=== PATIENT | male | born 1970 | race African-American/Black ===

== ENCOUNTER 2022-10-25 23:15 | Inpatient (IN) | payer MEDICARE, OTHER ==
[~2022-10-25] VITALS: Ht 185.4 cm; Wt 99.8 kg
[2022-10-25] MEDS ORDERED: ATOR40TA PO (23:40)
[2022-10-25] MEDS ORDERED: DOCU100C36 PO (23:40)
[2022-10-25] MEDS ORDERED: LISI20TA30 PO (23:40)
[2022-10-25] MEDS ORDERED: METF-440 PO (23:40)
[2022-10-25] MEDS ORDERED: MULT-213 PO (23:40)
[2022-10-25] MEDS ORDERED: ERGO400C PO (23:40)
[2022-10-25] MEDS ORDERED: APIX5TAB4 PO (23:40)
[2022-10-25] MEDS ORDERED: OMEG1CAP PO (23:40)
[2022-10-25] MEDS ORDERED: METO-356 PO (23:40)
[2022-10-25] MEDS ORDERED: OXYCODONE/APAP 5-325 MG TABLET PO ONE (23:45)
[2022-10-26] MEDS ORDERED: OXYCODONE/APAP 5-325 MG TABLET ONE (00:09)
[2022-10-26 00:10] LABS: HEMATOCRIT 34.5 % (36.7-47.1); MEAN CORPUSCULAR HEMOGLOBIN 27.8 uug (23.8-33.4); MEAN CORPUSCULAR VOLUME 84.2 fL (73.0-96.2); PLATELET COUNT (AUTO) 245 K/uL (152-348)
[2022-10-26 00:20] LABS: CARBON DIOXIDE 29 mmol/L (21-32); CHLORIDE 103 mmol/L (98-107); GLUCOSE 102 mg/dL (74-106); POTASSIUM 3.2 mmol/L (3.5-5.1); UREA NITROGEN, BLOOD 10 mg/dL (7-18)
[2022-10-26 00:29] LABS: ALANINE AMINOTRANSFERASE 28 U/L (16-63); ALKALINE PHOSPHATASE 105 U/L (50-136); ASPARTATE AMINOTRANSFERASE 14 U/L (15-37); BILIRUBIN,DIRECT 0.1 mg/dL (0.0-0.2); BILIRUBIN,TOTAL 0.2 mg/dL (0.2-1.0); TOTAL PROTEIN, SERUM 7.7 g/dL (6.4-8.2)
[2022-10-26] MEDS ORDERED: POTASSIUM BICARBONATE/CIT AC 25 MEQ TABLET.EFF PO ONE (00:30)
[2022-10-26] MEDS ORDERED: BLOO-1731 MC (01:31)
[2022-10-26] MEDS ORDERED: POTASSIUM BICARBONATE/CIT AC 25 MEQ TABLET.EFF ONE (01:32)
[2022-10-26] MEDS ORDERED: ONDANSETRON 4 MG/2 ML VIAL ONE (01:42)
[2022-10-26] MEDS ORDERED: HYDROMORPHONE 1 MG/1 ML DISP.SYRIN ONE (01:42)
[2022-10-26] MEDS ORDERED: ONDANSETRON 4 MG/2 ML VIAL IV ONE (01:45)
[2022-10-26] MEDS ORDERED: HYDROMORPHONE 1 MG/1 ML DISP.SYRIN IV ONE (01:45)
--- NOTE | 2022-10-26 02:01 | NUR ---
Called [facility] for panel call. Yenni Avery media relations coordinator. Waiting for call back.
--- NOTE | 2022-10-26 02:03 | NUR ---
Dr. Costello on panel call with Yenni Avery NP. Pending admission.
[2022-10-26] MEDS ORDERED: MAGNESIUM HYDROXIDE 30 ML LIQUID UDC PO PRN (02:15)
[2022-10-26] MEDS ORDERED: NITROGLYCERIN OINT 1 GM PACKET TP ONE ×2 (02:15→03:43)
[2022-10-26] MEDS ORDERED: ONDANSETRON 4 MG/2 ML VIAL IV PRN (02:15)
[2022-10-26] MEDS ORDERED: METOPROLOL TARTRATE 50 MG TABLET PO ONE (02:15)
[2022-10-26] MEDS ORDERED: REMEDY ESSENTIAL ZINC PASTE 113 GM TP PRN (02:15)
[2022-10-26] MEDS ORDERED: HYDROCODONE/APAP 10-325 MG TABLET ONE (03:44)
[2022-10-26] MEDS ORDERED: METOPROLOL TARTRATE 50 MG TABLET ONE (03:44)
[2022-10-26] MEDS: HYDROCODONE/APAP 10-325 MG TABLET PO PRN ×3 (03:52→12:45)
--- NOTE | 2022-10-26 04:09 | NUR ---
Called Tania Duque to notify of patients admission. Was told she's not in her office until 08:00am. Left a voicemail.
--- NOTE | 2022-10-26 04:33 | NUR ---
Report given to Rick DAS
--- NOTE | 2022-10-26 04:43 | NUR ---
Patient taken to third floor room 324 via wheelchair with personal belongings. Patient in stable condition, no signs of distress. Rick RN aware of patient's arrival.
--- NOTE | 2022-10-26 05:00 | NUR ---
Received Pt from Juliane (RN). Pt arrived to unit at 0440. Pt is A&Ox4 and is cooperative. Pt is experiencing S&S of distress (chest pain radiating to left shoulder and arm), but pain is tolerable. Will administer norco once pain increases or when pt needs it. Current BP is 100/63. Pt is SR on tele. Rm air. 20G R. Hand IV. Safety measures in place. Will continue to monitor.
--- NOTE | 2022-10-26 07:08 | NUR ---
End of shift Note: Pt is A&Ox4 and is cooperative. Pt is experiencing S&S of distress (chest pain radiating to left shoulder and arm). Administered [place]. Pt is SR on tele. Rm air. 20G R. Hand IV. Safety measures in place. Will continue to monitor.
[2022-10-26] MEDS ORDERED: ASPIRIN 81 MG TAB.CHEW PO SCH (09:00)
[2022-10-26] MEDS: OMEGA-3 FATTY ACIDS/FISH OIL CAPSULE PO SCH (09:00)
[2022-10-26] MEDS: DOCUSATE SODIUM 100 MG CAPSULE PO SCH ×2 (10:22→17:53)
[2022-10-26] MEDS: MULTIVITAMINS,THERAPEUTIC TABLET PO SCH (10:23)
[2022-10-26] MEDS: APIXABAN 5 MG TABLET PO SCH ×2 (10:23→21:01)
[2022-10-26] MEDS: CHOLECALCIFEROL 400 UNITS TABLET PO SCH (11:00)
[2022-10-26] MEDS: LISINOPRIL 20 MG TABLET PO SCH (11:00)
[2022-10-26] MEDS: METOPROLOL SUCCINATE XL 25 MG TAB.SR.24H PO SCH (11:00)
[2022-10-26 13:00] VITALS: BP 123/83
[2022-10-26 15:57] VITALS: BP 108/69
[2022-10-26] MEDS: ACETAMINOPHEN 325 MG TABLET PO PRN (17:52)
[2022-10-26] MEDS ORDERED: HYDROCODONE/APAP 10-325 MG TABLET PO PRN (18:15)
[2022-10-26] MEDS ORDERED: CYCLOBENZAPRINE HCL 10 MG TABLET PO PRN (20:15)
[2022-10-26] MEDS: ATORVASTATIN 40 MG TABLET PO SCH (21:01)
[2022-10-26] MEDS: HYDROMORPHONE 1 MG/1 ML DISP.SYRIN IV PRN (21:03)
[2022-10-26 23:30] VITALS: BP 109/68
[2022-10-27 00:23] LABS: *BILIRUBIN,URIN NEGATIVE (NEGATIVE); *BLOOD, URINE NEGATIVE (NEGATIVE); *CLARITY,URINE CLEAR (CLEAR); *COLOR,URINE YELLOW (YELLOW); *KETONES,URINE NEGATIVE (NEGATIVE); *UROBILINOGEN,URINE 0.2 E.U./dl (NORMAL); LEUKOCYTE ESTERASE ,URINE NEGATIVE (NEGATIVE); NITRITE, URINE NEGATIVE (NEGATIVE); PH,URINE 5.5 (5.0-8.0); UGLUCOSE NEGATIVE (NEGATIVE)
[2022-10-27] MEDS: HYDROMORPHONE 1 MG/1 ML DISP.SYRIN IV PRN ×6 (04:51→22:32)
[2022-10-27 05:53] VITALS: BP 110/70
[2022-10-27] MEDS: ACETAMINOPHEN 325 MG TABLET PO PRN (05:55)
--- NOTE | 2022-10-27 06:25 | NUR ---
Pt rested well in between care; pt seen by Dr Hennessy last night; pain management now on dilaudid which he had 3 times; ua and rapid influenza both sent and came back neg; pt has been running a fever, tylenol given; SCENARIO WRITER Hilton informed with new orders. blood cx, labs, cefepime and vanco.
[2022-10-27 07:28] LABS: HEMATOCRIT 33.7 % (36.7-47.1); MEAN CORPUSCULAR HEMOGLOBIN 27.7 uug (23.8-33.4); MEAN CORPUSCULAR VOLUME 83.8 fL (73.0-96.2); PLATELET COUNT (AUTO) 245 K/uL (152-348)
[2022-10-27] MEDS ORDERED: CEFEPIME HCL 2 G in IV DEXTROSE 5% 100 ML IV SCH (08:00)
[2022-10-27] MEDS: DOCUSATE SODIUM 100 MG CAPSULE PO SCH ×2 (08:22→16:53)
[2022-10-27] MEDS: OMEGA-3 FATTY ACIDS/FISH OIL CAPSULE PO SCH (08:22)
[2022-10-27] MEDS: MULTIVITAMINS,THERAPEUTIC TABLET PO SCH (08:22)
[2022-10-27] MEDS: APIXABAN 5 MG TABLET PO SCH ×2 (08:23→22:30)
[2022-10-27] MEDS: METOPROLOL SUCCINATE XL 25 MG TAB.SR.24H PO SCH (08:24)
[2022-10-27] MEDS: LISINOPRIL 20 MG TABLET PO SCH (08:25)
[2022-10-27 08:34] LABS: BILIRUBIN,TOTAL 0.3 mg/dL (0.2-1.0); CREATININE 1.1 mg/dL (0.6-1.3); PHOSPHOROUS 4.4 mg/dL (2.5-4.9); POTASSIUM 3.9 mmol/L (3.5-5.1); TOTAL PROTEIN, SERUM 7.6 g/dL (6.4-8.2)
--- NOTE | 2022-10-27 08:35 | NUR ---
Pt down to CT per orders via bed with Bari. Pt stated he felt a little dizzy standing up, VSS, no s/s of distress or SOB noted.
[2022-10-27 08:46] VITALS: BP 110/70
--- NOTE | 2022-10-27 08:47 | NUR ---
Received CRITICAL LAB value of Triponin 86 from the 7am lab draw this morning. Notified Dr. Gerhard FERREIRA.
--- NOTE | 2022-10-27 08:51 | NUR ---
Bari from CT called to notify me that he didn't see that the pt's order was changed from with to with and without. Dr. Hennessy notified. will wait until the results of the CT without to determine what to do next.
[2022-10-27] MEDS: VANCOMYCIN IV 1,500 MG in IV DEXTROSE 5% 500 ML IV SCH ×2 (08:57→18:04)
[2022-10-27] MEDS: CHOLECALCIFEROL 400 UNITS TABLET PO SCH (08:57)
[2022-10-27 09:14] LABS: THYROID STIMULATING HORMONE 3.25 mIU/mL (0.358-3.740)
[2022-10-27] MEDS: MEROPENEM 1 G in IV NORMAL SALINE 100 ML IV SCH ×2 (11:51→22:25)
[2022-10-27 12:00] VITALS: BP 125/80
[2022-10-27 16:19] VITALS: BP 128/79
--- NOTE | 2022-10-27 18:43 | NUR ---
Today pt c/o ADAMS and chills, plus a non-tender, hard bump on the top of his head that is new and was not caused by a fall or bumping into anything. Notified Dr. Hennessy who said "By 8pm I'll definitely see him". Pt is also curious about an EGD order in his chart, told to discuss with MD when he arrives.
[2022-10-27] MEDS: ATORVASTATIN 40 MG TABLET PO SCH (22:29)
[2022-10-27] MEDS: ACIDOPHILUS/BULGARICUS CHEW TAB PO SCH (22:29)
[2022-10-28] MEDS: MEROPENEM 1 G in IV NORMAL SALINE 100 ML IV SCH ×3 (04:59→20:00)
[2022-10-28] MEDS: VANCOMYCIN IV 1,500 MG in IV DEXTROSE 5% 500 ML IV SCH ×2 (06:21→17:14)
--- NOTE | 2022-10-28 08:00 | NUR ---
Pt received from security shift manager nurse. AAOX3. Vital signs stable. No shortness of breath noted. Pt complains of neck, arm and indu legs pain. Pain med given. right arm midline site painful. Called placed to midline nurse. Will continue to monitor.
[2022-10-28] MEDS: DOCUSATE SODIUM 100 MG CAPSULE PO SCH ×2 (09:26→17:12)
[2022-10-28] MEDS: MULTIVITAMINS,THERAPEUTIC TABLET PO SCH (09:27)
[2022-10-28] MEDS: METOPROLOL SUCCINATE XL 25 MG TAB.SR.24H PO SCH (09:27)
[2022-10-28] MEDS: ACIDOPHILUS/BULGARICUS CHEW TAB PO SCH ×2 (09:27→21:00)
[2022-10-28] MEDS: LISINOPRIL 20 MG TABLET PO SCH (09:28)
[2022-10-28] MEDS: OMEGA-3 FATTY ACIDS/FISH OIL CAPSULE PO SCH (09:29)
[2022-10-28] MEDS: APIXABAN 5 MG TABLET PO SCH ×2 (09:29→21:00)
[2022-10-28] MEDS: HYDROMORPHONE 1 MG/1 ML DISP.SYRIN IV PRN ×3 (09:30→23:35)
[2022-10-28] MEDS: CHOLECALCIFEROL 400 UNITS TABLET PO SCH (09:41)
[2022-10-28] MEDS ORDERED: SWABABLE VALVE TRANSFER SET EA MC ONE (11:28)
[2022-10-28] MEDS ORDERED: IOHEXOL 300MG/ML 100 ML INFUS..BTL ONE (11:28)
[2022-10-28] MEDS ORDERED: IV NORMAL SALINE 250 ML IV ONE (11:28)
--- NOTE | 2022-10-28 11:49 | NUR ---
Waiting for Consent form to be signed.
--- NOTE | 2022-10-28 12:00 | NUR ---
Pt reassessed. Complains of pain. pain med given. vital signs stable. Pt went for neck CT. tolerated well. no distress noted. will continue to monitor.
--- NOTE | 2022-10-28 16:00 | NUR ---
PT reassessed. Complains of neck pain. Med given. Pt ate 100% of dinner. no distress noted. Will continue to monitor.
--- NOTE | 2022-10-28 19:04 | NUR ---
Report given to incoming nurse. Pt in stable condition. No signs of shortness of pain.
[2022-10-28 20:30] VITALS: BP 143/87
[2022-10-28] MEDS: ATORVASTATIN 40 MG TABLET PO SCH (21:00)
[2022-10-29] MEDS: MEROPENEM 1 G in IV NORMAL SALINE 100 ML IV SCH ×3 (04:12→21:34)
[2022-10-29] MEDS: HYDROMORPHONE 1 MG/1 ML DISP.SYRIN IV PRN ×5 (04:14→21:35)
[2022-10-29] MEDS: VANCOMYCIN IV 1,500 MG in IV DEXTROSE 5% 500 ML IV SCH ×2 (04:45→15:02)
[2022-10-29 06:00] VITALS: BP 113/72
[2022-10-29 06:14] LABS: CREATININE 0.9 mg/dL (0.6-1.3); POTASSIUM 3.9 mmol/L (3.5-5.1)
--- NOTE | 2022-10-29 06:52 | NUR ---
Patient is stable, AAOX4 no adverse event happened during shift. Scheduled medications as well as prn have been administered and were well tolerated. No respiratory distress observed or reported from patient. He is now resting peacefully in his room. Will continue to monitor patient for safety.
--- NOTE | 2022-10-29 08:00 | NUR ---
Report received from outgoing nurse. Patient AAOX3. Vital signs stable. No shortness of breath noted. Patient requesting pain meds. Patient ate 100% of breakfast. Pt resting comfortably in bed. No signs of acute distress noted.
[2022-10-29 08:18] VITALS: BP 115/71
[2022-10-29] MEDS: DOCUSATE SODIUM 100 MG CAPSULE PO SCH ×2 (09:42→17:13)
[2022-10-29] MEDS: METOPROLOL SUCCINATE XL 25 MG TAB.SR.24H PO SCH (09:42)
[2022-10-29] MEDS: ACIDOPHILUS/BULGARICUS CHEW TAB PO SCH ×2 (09:43→21:31)
[2022-10-29] MEDS: OMEGA-3 FATTY ACIDS/FISH OIL CAPSULE PO SCH (09:43)
[2022-10-29] MEDS: CHOLECALCIFEROL 400 UNITS TABLET PO SCH (09:43)
[2022-10-29] MEDS: MULTIVITAMINS,THERAPEUTIC TABLET PO SCH (09:43)
[2022-10-29] MEDS: LISINOPRIL 20 MG TABLET PO SCH (09:45)
[2022-10-29] MEDS: APIXABAN 5 MG TABLET PO SCH ×2 (09:48→21:33)
[2022-10-29 11:53] VITALS: BP 136/85
--- NOTE | 2022-10-29 16:00 | NUR ---
Pt reassessed. Vital signs stable. No signs of distress noted. Pt comfortably watching TV.
[2022-10-29 16:52] VITALS: BP 130/85
--- NOTE | 2022-10-29 19:30 | NUR ---
Report given to incoming nurse. Patient in stable condition. Patient resting comfortably in bed with no acute distress noted. Pt denies any pain at this time.
[2022-10-29 20:00] VITALS: BP 126/73
[2022-10-29] MEDS: ATORVASTATIN 40 MG TABLET PO SCH (21:34)
[2022-10-30] VITALS: BP 116/73
[2022-10-30] MEDS: HYDROMORPHONE 1 MG/1 ML DISP.SYRIN IV PRN ×5 (01:17→17:38)
[2022-10-30] MEDS: VANCOMYCIN IV 1,500 MG in IV DEXTROSE 5% 500 ML IV SCH ×2 (02:00→15:10)
[2022-10-30 04:00] VITALS: BP 113/71
[2022-10-30] MEDS: MEROPENEM 1 G in IV NORMAL SALINE 100 ML IV SCH ×3 (04:12→20:00)
--- NOTE | 2022-10-30 07:57 | NUR ---
Report given to oncoming nurse, patient is stable, no sign of respiratory distress reported or observed. IV site is dry, patent and intact. Medications well tolerated, no side effect observed or reported. Patient is now resting comfortably in his room. Will continue to monitor patient for safety.
--- NOTE | 2022-10-30 08:00 | NUR ---
Discussed plan of care with pr re pain management. Pt denies any c/o pain at the moment. Pt agreeable with plan of care.
[2022-10-30] MEDS: METOPROLOL SUCCINATE XL 25 MG TAB.SR.24H PO SCH (09:00)
[2022-10-30] MEDS: LISINOPRIL 20 MG TABLET PO SCH (09:00)
[2022-10-30] MEDS: DOCUSATE SODIUM 100 MG CAPSULE PO SCH ×2 (09:00→16:12)
[2022-10-30] MEDS: ACIDOPHILUS/BULGARICUS CHEW TAB PO SCH ×2 (09:22→20:23)
[2022-10-30] MEDS: MULTIVITAMINS,THERAPEUTIC TABLET PO SCH (09:22)
[2022-10-30] MEDS: CHOLECALCIFEROL 400 UNITS TABLET PO SCH (09:23)
[2022-10-30] MEDS: OMEGA-3 FATTY ACIDS/FISH OIL CAPSULE PO SCH (09:23)
[2022-10-30] MEDS: APIXABAN 5 MG TABLET PO SCH ×2 (09:24→20:31)
[2022-10-30 11:36] VITALS: BP 127/76
[2022-10-30] MEDS: ACETAMINOPHEN 325 MG TABLET PO PRN ×2 (15:10→20:30)
[2022-10-30] MEDS ORDERED: MERO1VIA23 IV (15:17)
[2022-10-30] MEDS ORDERED: MAGN400O6 PO (15:17)
[2022-10-30] MEDS ORDERED: ACID1TAB4 PO (15:17)
[2022-10-30] MEDS ORDERED: CYCL10TA9 PO (15:17)
[2022-10-30] MEDS ORDERED: ACET325T53 PO (15:17)
[2022-10-30] MEDS ORDERED: HYDR2TAB4 PO (15:17)
[2022-10-30] MEDS ORDERED: RXVAN XX (15:17)
[2022-10-30 16:00] VITALS: BP 138/72
--- NOTE | 2022-10-30 19:00 | NUR ---
CM found bed for pt at [facility]. Pts pain managed and effective. Pt is in no acute distress.
[2022-10-30] MEDS: ATORVASTATIN 40 MG TABLET PO SCH (20:23)
--- NOTE | 2022-10-30 20:33 | NUR ---
PATIENT BEING DISCHARGED TO [facility]. TEMPERATURE 100.1. BP 159/94. PATIENT OFFERED TYLENOL BUT REFUSED. CALLED OUT TO DR. TRINIDAD FOR FURTHER ORDERS. ALL NEEDS ATTENDED.
--- NOTE | 2022-10-30 21:00 | NUR ---
PATIENT DISCHARGED TO [facility] IN STABLE[address] TRINIDAD NOTIFIED THAT PATIENT IS BEING DISCHARGED WITH TEMPERATURE OF 100.1, BUT PATIENT REFUSED TYLENOL. BP ELEVATED. MD AWARE. PATIENT DENIES ANY CHEST PAIN OR DISCOMFORT, UPON DISCHARGE. ALL OTHER VSS. REPORT GIVEN TO TERESA COFFEY AT [facility]. PATIENT WAS RECEIVING VANCOMYCIN, TURF MANAGER WAS UNABLE TO HANG IV MERREM AT THE SCHEDULED TIME. PATIENT REFUSED FOR VANCO TO FINISH. ALL NEEDS ATTENDED.
== END 2022-10-30 21:25 | DRG 862 ==
LOC: ER 23:23 → TELE3 10-26 02:09 → TELE 10-26 07:20 → TELE3 10-29 15:10 → MEDSURG3 10-30 09:25
PROVIDERS: ADMIT Internal Medicine; ATTEND Internal Medicine
PROC: 05H533Z Insertion of Infusion Device into Right Subclavian Vein, Percutaneous Approach (ICD-10-PCS; principal; 2022-10-26)
PROC: B546ZZA Ultrasonography of Right Subclavian Vein, Guidance (ICD-10-PCS; 2022-10-26)
PROC: 05H633Z Insertion of Infusion Device into Left Subclavian Vein, Percutaneous Approach (ICD-10-PCS; 2022-10-28)
PROC: B547ZZA Ultrasonography of Left Subclavian Vein, Guidance (ICD-10-PCS; 2022-10-28)
DX: T81.49XA Infection following a procedure, other surgical site, initial encounter (principal); I21.A1 Myocardial infarction type 2; M46.22 Osteomyelitis of vertebra, cervical region; R65.10 Systemic inflammatory response syndrome (SIRS) of non-infectious origin without acute organ dysfunction; M50.10 Cervical disc disorder with radiculopathy, unspecified cervical region; I48.0 Paroxysmal atrial fibrillation; E11.9 Type 2 diabetes mellitus without complications; E66.9 Obesity, unspecified; E78.5 Hyperlipidemia, unspecified; I25.2 Old myocardial infarction; Z87.891 Personal history of nicotine dependence; Z79.01 Long term (current) use of anticoagulants; Z88.0 Allergy status to penicillin; Z20.822 Contact with and (suspected) exposure to COVID-19; I10 Essential (primary) hypertension; F43.10 Post-traumatic stress disorder, unspecified; Z68.29 Body mass index [BMI] 29.0-29.9, adult; R93.89 Abnormal findings on diagnostic imaging of other specified body structures; Z79.84 Long term (current) use of oral hypoglycemic drugs; Y83.8 Other surgical procedures as the cause of abnormal reaction of the patient, or of later complication, without mention of misadventure at the time of the procedure; Y92.129 Unspecified place in nursing home as the place of occurrence of the external cause
CPT/HCPCS: 36415; 70491; 71045; 72125; 83550; 83735; 84100; 84443; 84484; 85025; 87040; 93005; 93307; A4663; G0378; J1170; J2185; J2405; J3370; J7042; J7060; Q9967

== ENCOUNTER 2023-01-26 15:52 | Emergency (ER) | payer MEDICARE, OTHER ==
[~2023-01-26] VITALS: Ht 185.4 cm; Wt 99.8 kg
[~2023-01-26 15:52] MED LIST: ACET325T53 PO; ACID1TAB4 PO; APIX5TAB4 PO; ATOR40TA PO; BLOO-1731 MC; CYCL10TA9 PO; DOCU100C36 PO; ERGO400C PO; HYDR2TAB4 PO; LISI20TA30 PO; MAGN400O6 PO; MERO1VIA23 IV; METF-440 PO; METO-356 PO; MULT-213 PO; OMEG1CAP PO; RXVAN XX
[2023-01-26 16:30] LABS: HEMATOCRIT 37.3 % (36.7-47.1); MEAN CORPUSCULAR HEMOGLOBIN 27.4 uug (23.8-33.4); MEAN CORPUSCULAR VOLUME 83.7 fL (73.0-96.2); PLATELET COUNT (AUTO) 226 K/uL (152-348)
--- NOTE | 2023-01-26 16:30 | NUR ---
PT IN NAD; VSS. ER MD AT BEDSIDE FOR MSE
[2023-01-26 16:56] LABS: CARBON DIOXIDE 27 mmol/L (21-32); CHLORIDE 106 mmol/L (98-107); GLUCOSE 117 mg/dL (74-106); POTASSIUM 3.5 mmol/L (3.5-5.1); UREA NITROGEN, BLOOD 11 mg/dL (7-18)
[2023-01-26 17:05] LABS: ALANINE AMINOTRANSFERASE 18 U/L (16-63); ALKALINE PHOSPHATASE 109 U/L (50-136); ASPARTATE AMINOTRANSFERASE 8 U/L (15-37); BILIRUBIN,DIRECT 0.1 mg/dL (0.0-0.2); BILIRUBIN,TOTAL 0.1 mg/dL (0.2-1.0); LIPASE 97 U/L (73-393)
--- NOTE | 2023-01-26 18:02 | NUR ---
Patient discharged to home in stable condition. Written and verbal after care instructions given. Patient verbalizes understanding of instructions. Stressed follow up or return to ER for worsening s/s.
[2023-01-26 18:03] VITALS: BP 119/69
== END 2023-01-26 18:04 | disposition home or self-care (01) ==
LOC: ER 15:53
DX: R07.89 Other chest pain (principal); R10.84 Generalized abdominal pain; M19.90 Unspecified osteoarthritis, unspecified site; E78.5 Hyperlipidemia, unspecified; J45.909 Unspecified asthma, uncomplicated; E11.9 Type 2 diabetes mellitus without complications; Z88.0 Allergy status to penicillin; Z88.6 Allergy status to analgesic agent; Z88.8 Allergy status to other drugs, medicaments and biological substances; Z91.012 Allergy to eggs; Z79.899 Other long term (current) drug therapy
CPT/HCPCS: 36415; 71045; 72170; 83690; 84484; 85025; 93005; A4663

== ENCOUNTER 2023-06-25 19:35 | Emergency (ER) | payer OTHER ==
[~2023-06-25] VITALS: Ht 185.4 cm; Wt 99.8 kg
[2023-06-25] MEDS ORDERED: ACETAMINOPHEN ES 500 MG TABLET PO ONE (20:30)
[2023-06-25] MEDS ORDERED: ACETAMINOPHEN ES 500 MG TABLET ONE (20:30)
[2023-06-25] MEDS ORDERED: ONDANSETRON ODT 4 MG TAB.RAPDIS SL ONE (20:30)
[2023-06-25] MEDS ORDERED: ONDANSETRON ODT 4 MG TAB.RAPDIS ONE (20:30)
[2023-06-25 21:18] LABS: BASOPHILS # (AUTO) 0.1 K/UL (0.0-0.2); BASOPHILS % (AUTO) 0.9 % (0.0-2.0); EOSINOPHILS # (AUTO) 0.1 K/uL (0.0-0.7); EOSINOPHILS % (AUTO) 1.3 % (0.0-7.0); HEMATOCRIT 38.5 % (36.7-47.1); HEMOGLOBIN 12.9 g/dL (12.5-16.3); LYMPHOCYTES # (AUTO) 1.1 K/uL (0.8-4.8); LYMPHOCYTES % (AUTO) 18.6 % (20.5-51.5); MEAN CORPUSCULAR HEMOGLOBIN 28.1 uug (23.8-33.4); MEAN CORPUSCULAR HGB CONC 33 g/dL (32.5-36.3); MEAN CORPUSCULAR VOLUME 84.2 fL (73.0-96.2); MONOCYTES # (AUTO) 0.6 K/uL (0.1-1.30); MONOCYTES % (AUTO) 10.7 % (0.0-11.0); NEUTROPHILS # (AUTO) 4.1 K/uL (1.8-8.9); NEUTROPHILS % (AUTO) 68.5 % (38.5-71.5); PLATELET COUNT (AUTO) 218 K/uL (152-348); RED BLOOD CELL COUNT(AUTO) 4.58 MIL/uL (4.06-5.63); RED CELL DISTRIBUTION WIDTH 13.9 % (12.1-16.2); WHITE BLOOD COUNT (AUTO) 5.9 K/uL (3.6-10.2)
[2023-06-25 21:23] LABS: DIFFERENTIAL COMMENT 1
[2023-06-25 21:28] LABS: CALCIUM 9.4 mg/dL (8.5-10.1); CREATININE 1.1 mg/dL (0.6-1.3); POTASSIUM 3.4 mmol/L (3.5-5.1)
[2023-06-25 21:34] LABS: ALBUMIN 3.8 g/dL (3.4-5.0); BILIRUBIN,TOTAL 0.3 mg/dL (0.2-1.0); TOTAL PROTEIN, SERUM 7.5 g/dL (6.4-8.2)
[2023-06-25] MEDS ORDERED: POTASSIUM CHLORIDE 20 MEQ TAB.PRT.SR ONE (21:42)
[2023-06-25] MEDS ORDERED: IV NORMAL SALINE 1000 ML BAG IV ONE (21:45)
[2023-06-25] MEDS ORDERED: POTASSIUM CHLORIDE 20 MEQ TAB.PRT.SR PO ONE (21:45)
[2023-06-25 23:10] LABS: *BILIRUBIN,URIN NEGATIVE (NEGATIVE); *BLOOD, URINE NEGATIVE (NEGATIVE); *CLARITY,URINE CLEAR (CLEAR); *COLOR,URINE YELLOW (YELLOW); *KETONES,URINE NEGATIVE (NEGATIVE); *PROTEIN,URINE NEGATIVE (NEGATIVE); *UROBILINOGEN,URINE 0.2 E.U./dl (NORMAL); LEUKOCYTE ESTERASE ,URINE NEGATIVE (NEGATIVE); NITRITE, URINE NEGATIVE (NEGATIVE); PH,URINE 7.5 (5.0-8.0); UGLUCOSE NEGATIVE (NEGATIVE)
[2023-06-25] MEDS ORDERED: SULF-11 PO (23:43)
[2023-06-26 00:48] VITALS: BP 138/85; TEMP 99.9; O2SAT 99
== END 2023-06-26 00:48 ==
LOC: ER 19:38
DX: J06.9 Acute upper respiratory infection, unspecified (principal); L03.113 Cellulitis of right upper limb; L03.114 Cellulitis of left upper limb; E78.5 Hyperlipidemia, unspecified; J45.909 Unspecified asthma, uncomplicated; E11.9 Type 2 diabetes mellitus without complications; I10 Essential (primary) hypertension; Z88.0 Allergy status to penicillin; Z88.6 Allergy status to analgesic agent; Z88.8 Allergy status to other drugs, medicaments and biological substances; Z91.012 Allergy to eggs; Z79.899 Other long term (current) drug therapy; Z20.822 Contact with and (suspected) exposure to COVID-19
CPT/HCPCS: 99284; 74176; 96360; 71045; 87426; 87804 ×2; 80053; 81003; 85025; 85610; 36415; 83605; J7040; A4663; A9150; Q0162